=== PATIENT | male | born 1965 | race Caucasian/White ===

== ENCOUNTER 2025-03-31 08:04 | Emergency (ER) | payer OTHER | END 2025-03-31 08:53 | disposition home or self-care (01) | LOC: JP.ED 08:04 | DX: M54.50 Low back pain, unspecified (principal); I10 Essential (primary) hypertension; E78.00 Pure hypercholesterolemia, unspecified; Z79.82 Long term (current) use of aspirin | CPT/HCPCS: 99283 ==